=== PATIENT | female | born 1950 | race African-American/Black ===

== ENCOUNTER 2019-03-07 11:57 | Outpatient (CLI) | payer MEDICARE ==
--- NOTE | 2019-03-07 15:03 | XRay Report ---
LEFT KNEE, 2 VIEWS History: Left knee pain. Findings: Normal bone mineralization. There is mild medial compartment joint space narrowing and marginal spurring. The remaining compartments are within normal limits. No evidence for fracture, bone lesion or large joint effusion. Impression: Mild medial compartmental osteoarthritis.
--- NOTE | 2019-03-07 15:04 | XRay Report ---
AP AND LATERAL CERVICAL SPINE: History: Neck pain. Borderline bone mineralization. There is normal height and alignment of the cervical vertebral bodies. No evidence for compression deformity, subluxation or bone lesion. Mild disc space narrowing and posterior spurring is identified at C5-6. The remaining disc levels are unremarkable. The posterior elements are within normal limits. IMPRESSION: Mild degenerative disc disease at C5-6.
--- NOTE | 2019-03-07 15:06 | XRay Report ---
AP AND LATERAL LUMBOSACRAL SPINE: History: Lumbar radiculopathy. Borderline bone mineralization. There is mild dextro curvature to the lumbar spine on the frontal image. 1 cm anterolisthesis of L4 with respect to L5 is identified on the lateral image. Chronic appearing L4 pars defects are suspected. The remaining lumbar vertebra are normal in alignment. There is no evidence for compression deformity or bone lesion. Moderate disc space narrowing and marginal spurring is identified at L4-5 and L5-S1. The sacrum and SI joints are unremarkable. IMPRESSION: Mild scoliosis. Grade 2 anterolisthesis of L4 with respect to L5 secondary to chronic appearing L4 pars defects. Moderate degenerative disc disease at L4-5 and L5-S1.
== END 2019-03-07 11:58 | disposition home or self-care (01) ==
LOC: XRAY 11:57
PROVIDERS: ATTEND Chiropractor
DX: M51.37 Other intervertebral disc degeneration, lumbosacral region (principal); M43.17 Spondylolisthesis, lumbosacral region; M41.87 Other forms of scoliosis, lumbosacral region; M50.322 Other cervical disc degeneration at C5-C6 level; M17.12 Unilateral primary osteoarthritis, left knee
CPT/HCPCS: 72040; 72100